=== PATIENT | female | born 1995 | race Caucasian/White ===

== ENCOUNTER 2017-08-05 18:10 | Inpatient (IN) | payer OTHER ==
[2017-08-05] MEDS: ELECTROLYTE-148 SOLN 1,000 ML IV SCH (21:30)
--- NOTE | 2017-08-05 21:43 | HP ---
Past Medical History - Admission Chief Complaint: Labor pain History Source: Patient Limitations to Obtaining History: No Limitations - Past Medical History ...: 4 ...Para: 0 ...Term: 0 ...: 0 ...Spon : 2 ...Induced : 1 ...LMP: 11/04/16 ... Weeks Gestation by Dates: 39.1 ...EDC by Dates: 08/11/17 ...EDC by Sono: 08/10/17 - Past Surgical History Past Surgical History: Yes: None Hx Myomectomy: No Hx Transabdominal Cerclage: No - Smoking History Smoking history: Current every day smoker Have you smoked in the past 12 months: Yes Aproximately how many cigarettes per day: 10 - Alcohol/Substance Use Hx Alcohol Use: No History of Substance Use: reports: None - Social History Usual Living Arrangement: Yes: With Significant Other History of Recent Travel: No Home Medications - Allergies Allergies/Adverse Reactions: Allergies Allergy/AdvReac Type Severity Reaction Status Date / Time No Known Allergies Allergy Verified 08/05/17 19:09 Family Disease History - Family Disease History Family History: Unremarkable Review of Systems - Review of Systems Constitutional: reports: No Symptoms Eyes: reports: No Symptoms HENT: reports: No Symptoms Neck: reports: No Symptoms Cardiovascular: reports: No Symptoms Respiratory: reports: No Symptoms Gastrointestinal: reports: No Symptoms Genitourinary: reports: Pain Breasts: reports: No Symptoms Reported Musculoskeletal: reports: No Symptoms Integumentary: reports: No Symptoms Neurological: reports: No Symptoms Endocrine: reports: No Symptoms Hematology/Lymphatic: reports: No Symptoms Psychiatric: reports: No Symptoms Pain Intensity: 7 Physical Exam - Maternity Vital Signs: Vital Signs Temperature 98.2 F 08/05/17 19:10 Pulse Rate 87 08/05/17 19:10 Respiratory Rate 20 08/05/17 19:10 Blood Pressure 135/76 08/05/17 19:10 O2 Sat by Pulse Oximetry (%) Constitutional: Yes: Well Nourished Eyes: Yes: Conjunctiva Clear HENT: Yes: Atraumatic Neck: Yes: Supple Cardiovascular: Yes: Regular Rate and Rhythm Lungs: Clear to auscultation Breast(s): Yes: WNL - Abdominal Exam/OB Number of Fetuses: Single Presentation: Vertex Contractions: Yes Regularity: Irregular Intensity: Mild/Mod - Vaginal Exam/OB Dilatation (cm): 3 Effacement (%): 70 Amniotic Membrane Status: Intact Station: -2 - Physical Exam ...Motor Strength: WNL Psychiatric: Yes: Alert, Oriented Problem List - Problems (1) Pain during labor Code(s): O99.89 - OTH DISEASES AND CONDITIONS COMPL PREG/CHLDBRTH; R52 - PAIN, UNSPECIFIED Assessment/Plan IUP @ 39 weeks Early labor Admit to L&D Analgesia as needed Pitocin augmentation Anticipate
[2017-08-05] MEDS ORDERED: OXYTOCIN 15 UNITS/ LR 250 ML 15 UNIT/250 ML INFUS.BAG IVPB SCH (21:45)
[2017-08-05 21:47] VITALS: BMI 41.4
[2017-08-05 22:02] LABS: EOS % 0.9 % (0-4.5); HEMATOCRIT 38.9 % (32.4-45.2); HEMOGLOBIN 12.7 GM/dL (10.7-15.3); LYMPH % 25.5 % (8-40); MCHC 32.5 g/dl (32.0-36.0); MEAN PLT VOLUME 9.2 fl (7.5-11.1); MONO % 6.1 % (3.8-10.2); NEUT % 66.5 % (42.8-82.8); PLATELET COUNT 379 K/MM3 (134-434); RBC 4.87 M/mm3 (3.60-5.2); RDW 13.9 % (11.6-15.6); WHITE BLOOD COUNT 11.9 K/mm3 (4.0-10.0)
[2017-08-05 22:16] LABS: INR 0.91 (0.82-1.09); PROTHROMBIN TIME (PATIENT) 10.3 SEC (9.98-11.88)
[2017-08-05 22:18] LABS: ACTIVATED PTT 29.6 SECONDS (26.9-34.4)
[2017-08-05] MEDS ORDERED: OXYTOCIN 15 UNITS/ LR 250 ML 15 UNIT/250 ML INFUS.BAG IVPB ONE (22:24)
[2017-08-05 22:32] LABS: ANION GAP 9 (8-16); BLOOD UREA NITROGEN 7 mg/dL (7-18); CALCIUM 9.2 mg/dL (8.5-10.1); CHLORIDE 105 mmol/L (98-107); CO2 22 mmol/L (21-32); CREATININE 0.4 mg/dL (0.55-1.02); GLUCOSE,RANDOM 75 mg/dL (74-106); POTASSIUM 4.2 mmol/L (3.5-5.1); SODIUM 136 mmol/L (136-145)
[2017-08-05] MEDS ORDERED: PROMETHAZINE HCL 25 MG/1 ML VIAL IVPB PRN (23:39)
[2017-08-05] MEDS ORDERED: BUTORPHANOL TARTRATE 1 MG/ML VIAL IVPUSH PRN (23:39)
--- NOTE | 2017-08-05 23:44 | PN ---
Progress Note (short form) - Note Progress Note: Patient seen and evaluated. She c/o mild to moderate discomfort. FHR : Reassuring [place] : + regular contractions VE : / -2 AROM clear A / P : Active labor Continue pitocin augmentation Analgesia as needed Continue monitoring Problem List - Problems (1) Pain during labor Code(s): O99.89 - OTH DISEASES AND CONDITIONS COMPL PREG/CHLDBRTH; R52 - PAIN, UNSPECIFIED
[2017-08-06] MEDS ORDERED: BUTORPHANOL TARTRATE 1 MG/ML VIAL ONE ×2 (00:26)
[2017-08-06] MEDS ORDERED: PROMETHAZINE HCL 25 MG/1 ML VIAL ONE (00:27)
[2017-08-06] MEDS: ELECTROLYTE-148 SOLN 1,000 ML IV SCH (01:50)
[2017-08-06] MEDS ORDERED: FENTANYL/BUPIVACAINE/NS/PF - PCEA - 50 ML DISP.SYRIN EP ONE (03:32)
[2017-08-06] MEDS ORDERED: FENTANYL/BUPIVACAINE/NS/PF - PCEA - 50 ML DISP.SYRIN EP SCH (04:00)
[2017-08-06] MEDS ORDERED: LIDOCAINE HCL 1% PRESERVATIVE FREE - 30ML VIAL ONE (06:58)
[2017-08-06] MEDS ORDERED: OXYTOCIN 20 UNITS in 0.9% NS 20 UNIT/1,000 ML INFUS.BAG IV ONE (06:59)
--- NOTE | 2017-08-06 07:13 | PN ---
Delivery - Delivery Vaginal Delivery: Spontaneous Type of Anesthesia: Epidural EBL (cc): 250 Delivery, Single - Feeding Plan Initial Plan: Elected not to breastfeed exclusively throughout hospitalization Remarks - Remarks Remarks: Normal spontaneous vaginal delivery of a live infant boy over intact perineum. Nose / Oropharynx suctioned @ perineum. Cord clamped and cut. Placenta expelled spontaneously intact.
[2017-08-06] MEDS ORDERED: TUBERCULIN PPD 5 TU/0.1ML SYRINGE (IN PATIENT USE ONLY) ID ONE (07:30)
[2017-08-06] MEDS ORDERED: IBUPROFEN 600 MG TABLET (FP) PO PRN (07:47)
[2017-08-06] MEDS ORDERED: BISACODYL 10 MG SUPP.RECT RC PRN (07:47)
[2017-08-06] MEDS ORDERED: BENZOCAINE 28 GM HEMORRHOIDAL OINTMENT TP PRN (07:47)
[2017-08-06] MEDS ORDERED: METHYLERGONOVINE MALEATE 0.2 MG/1 ML AMP IM PRN (07:47)
[2017-08-06] MEDS ORDERED: BENZOCAINE 20% 57 GM BOTTLE TP PRN (07:47)
[2017-08-06] MEDS ORDERED: ACETAMINOPHEN 325 MG TABLET (FP) PO PRN (07:47)
[2017-08-06] MEDS ORDERED: WITCH HAZEL 50% (TUCKS) 40 PAD/JAR PAD TP PRN (07:47)
[2017-08-06] MEDS ORDERED: OXYTOCIN 20 UNITS in 0.9% NS 20 UNIT/1,000 ML INFUS.BAG IV SCH (08:00)
[2017-08-06] MEDS: PRENATAL VITAMINS W/ FOLIC ACID TABLET (FP) PO SCH (10:23)
[2017-08-06] MEDS: FERROUS SO4 325 MG TABLET (FP) PO SCH ×3 (10:23→18:10)
--- NOTE | 2017-08-07 08:07 | PN ---
Post Progress Note Post Day: 1 Type of Delivery: Vital Signs: Vital Signs Temperature 97.8 F 08/07/17 06:00 Pulse Rate 92 H 08/07/17 06:00 Respiratory Rate 20 08/07/17 06:00 Blood Pressure 125/78 08/07/17 06:00 O2 Sat by Pulse Oximetry (%) 100 08/06/17 05:30 Breast Exam: Yes: Soft Uterus: Yes: Fundus Firm, Fundus below umbilicus Abdomen/GI: Yes: Abdomen soft Lochia: Yes: Serosa Lochia, amount: Moderate Extremities: Yes: Calves non-tender Perineum: Yes: Laceration Activity: Ambulating - Labs Labs: CBC WBC 11.9 K/mm3 (4.0-10.0) H 08/05/17 21:45 RBC 4.87 M/mm3 (3.60-5.2) 08/05/17 21:45 Hgb 12.7 GM/dL (10.7-15.3) 08/05/17 21:45 Hct 38.9 % (32.4-45.2) 08/05/17 21:45 MCV 80.0 fl (80-96) 08/05/17 21:45 MCH 26.0 pg (25.7-33.7) 08/05/17 21:45 MCHC 32.5 g/dl (32.0-36.0) 08/05/17 21:45 RDW 13.9 % (11.6-15.6) 08/05/17 21:45 Plt Count 379 K/MM3 (134-434) 08/05/17 21:45 MPV 9.2 fl (7.5-11.1) 08/05/17 21:45 Neutrophils % 66.5 % (42.8-82.8) 08/05/17 21:45 Lymphocytes % 25.5 % (8-40) 08/05/17 21:45 Monocytes % 6.1 % (3.8-10.2) 08/05/17 21:45 Eosinophils % 0.9 % (0-4.5) 08/05/17 21:45 Basophils % 1.0 % (0-2.0) 08/05/17 21:45 Assessment/Plan s/p day #1 condition is stable continue current care.
[2017-08-07 08:26] LABS: BASO % 0.3 % (0-2.0); EOS % 0.5 % (0-4.5); HEMATOCRIT 35.2 % (32.4-45.2); HEMOGLOBIN 11.3 GM/dL (10.7-15.3); LYMPH % 22.2 % (8-40); MCH 25.8 pg (25.7-33.7); MCHC 32.3 g/dl (32.0-36.0); MEAN CELL VOLUME 79.9 fl (80-96); MEAN PLT VOLUME 8.6 fl (7.5-11.1); MONO % 5.7 % (3.8-10.2); NEUT % 71.3 % (42.8-82.8); PLATELET COUNT 309 K/MM3 (134-434); RDW 14.3 % (11.6-15.6); WHITE BLOOD COUNT 18.4 K/mm3 (4.0-10.0)
[2017-08-07] MEDS: FERROUS SO4 325 MG TABLET (FP) PO SCH ×3 (08:55→17:42)
[2017-08-07] MEDS: PRENATAL VITAMINS W/ FOLIC ACID TABLET (FP) PO SCH (09:02)
[2017-08-07] MEDS ORDERED: DIPHTH,PERTUSS(ACELL),TET 0.5 ML DISP.SYRIN IM ONE (10:00)
[2017-08-07] MEDS ORDERED: FLU VACC QS2017-18 36MOS UP/PF 60 MCG/0.5 ML SYRINGE IM ONE (10:00)
--- NOTE | 2017-08-07 15:39 | DS ---
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 Vital Signs: Vital Signs Temperature 97.6 F 08/07/17 08:10 Pulse Rate 86 08/07/17 08:10 Respiratory Rate 20 08/07/17 08:10 Blood Pressure 138/78 08/07/17 08:10 O2 Sat by Pulse Oximetry (%) 100 08/06/17 05:30 Constitutional: Yes: Well Nourished Eyes: Yes: Conjunctiva Clear HENT: Yes: Atraumatic Neck: Yes: Supple Cardiovascular: Yes: Regular Rate and Rhythm Respiratory: Yes: Regular, CTA Bilaterally Gastrointestinal: Yes: Normal Bowel Sounds ...Rectal Exam: Yes: WNL Renal/: Yes: WNL Pelvis: Yes: WNL External Genitalia: Yes: Normal Vaginal Exam: Yes: Normal Cervix: Yes: Normal Uterus: Yes: Firm ....Post : Yes: Uterus firm, Moderate lochia serosa Breast(s): Yes: WNL Musculoskeletal: Yes: WNL Extremities: Yes: WNL Integumentary: Yes: WNL Neurological: Yes: Alert, Oriented ...Motor Strength: WNL Psychiatric: Yes: Alert, Oriented Labs: CBC, BMP 08/07/17 08:05 08/05/17 21:45 Delivery - Delivery Vaginal Delivery: Spontaneous Type of Anesthesia: Epidural Episiotomy/Laceration: None EBL (cc): 250 Delivery, Single - Stages of Labor Date 1st Stage Initiatied: 08/06/17 Time 1st Stage Initiated: 00:00 Date 2nd Stage Initiated: 08/06/17 Time 2nd Stage Initiated: 06:40 Date of Delivery: 08/06/17 Time of Delivery: 07:39 Time Placenta Delivered: 07:42 - Condition of Infant Foster Care Therapist/English Tutor Present: No Gender: Male Weight: 6 lb 8 oz Position: Left, OA Total Hours ROM (Hrs/Mins): 8hrs 7 min - 1 Minute Total Score: 9 5 Minutes Total Score: 9 - [place] Feeding Plan Initial Plan: Elected not to breastfeed exclusively throughout hospitalization Discharge Summary Reason For Visit: LABOR ADMIT Current Active Problems Pain during labor (Acute) Status post normal vaginal delivery (Acute) Procedures: Principal: Normal spontaneous vaginal delivery Hospital Course: Routine care Condition: Good - Instructions Diet, Activity, Other Instructions: Regular diet No douching, no sexual intercourse x 6 weeks F/U with MD in 6 weeks Disposition: HOME
[2017-08-07] MEDS ORDERED: SENNOSIDES/DOCUSATE COMBO (SENNA PLUS) TABLET (UD) PO PRN (22:00)
[2017-08-08] MEDS: FERROUS SO4 325 MG TABLET (FP) PO SCH ×2 (08:20→12:43)
[2017-08-08] MEDS: PRENATAL VITAMINS W/ FOLIC ACID TABLET (FP) PO SCH (10:11)
[2017-08-08 11:31] VITALS: BP 143/74; PULSE 86; TEMP 97.7
== END 2017-08-08 13:45 | disposition home or self-care (01) | DRG 560 ==
LOC: JDEL 18:10 → JLDR 21:15 → J3W 08-06 09:26
PROVIDERS: ADMIT Obstetrics & Gynecology; ATTEND Obstetrics & Gynecology
PROC: 10E0XZZ Delivery of Products of Conception, External Approach (ICD-10-PCS; principal; 2017-08-06)
DX: O80 Encounter for full-term uncomplicated delivery (principal); Z3A.39 39 weeks gestation of pregnancy; Z37.0 Single live birth
CPT/HCPCS: 36415; 59409; 80048; 85025; 85610; 85730; 86593; 86762; 86850; 86900; 86901; 87389; 90686; 90715; G0008